=== PATIENT | female | born 1955 | race Hispanic/Latino ===

== ENCOUNTER 2018-02-02 15:20 | Emergency (ER) | payer SELFPAY ==
[2018-02-02] MEDS ORDERED: ASPIRIN 325 MG TABLET ONE (15:30)
[2018-02-02] MEDS ORDERED: LIDOCAINE HCL 2% VISCOUS 15 ML UDCUP ONE (15:45)
[2018-02-02] MEDS ORDERED: MAG HYDROX/AL HYDROX/SIMETH ES 30 ML SUSP UDCUP ONE (15:45)
[2018-02-02 15:46] LABS: INR 0.92 (0.85-1.15); PARTIAL THROMBOPLASTIN TIME 26.4 SEC (26.3-35.5); PROTHROMBIN TIME 9.7 SEC (9.6-11.6)
[2018-02-02 15:50] LABS: POTASSIUM 3.5 mmol/L (3.5-5.1)
[2018-02-02 15:59] LABS: ALBUMIN 3.8 g/dL (3.5-5.0); BILIRUBIN,TOTAL 0.4 mg/dL (0.2-1.0); TOTAL PROTEIN, SERUM 7.4 g/dL (6.0-8.3)
[2018-02-02 16:08] LABS: BASOPHILS % (AUTO) 1.8 % (0.0-5.0); EOSINOPHILS % (AUTO) 0.4 % (0.0-8.0); MEAN CORPUSCULAR HEMOGLOBIN 30.4 pg (27.0-33.0); MEAN CORPUSCULAR HGB CONC 34.4 g/dL (32.0-36.0); MEAN CORPUSCULAR VOLUME 88.4 fL (79-99); NEUTROPHILS % (AUTO) 52.8 % (40.0-77.0); NUCLEATED RED BLOOD CELLS 0.1 % (0.0-0.19); PLATELET COUNT (AUTO) 160 K/uL (130-400); RED BLOOD CELL COUNT(AUTO) 4.98 MIL/uL (4.00-5.50); RED CELL DISTRIBUTION WIDTH 14.1 % (11.0-15.5); WHITE BLOOD COUNT (AUTO) 6.1 K/uL (4.8-10.8)
[2018-02-02] MEDS ORDERED: IOHEXOL 350 MG/ML 100ML INFUS..BTL IV ONE (16:18)
[2018-02-02 17:25] LABS: APPEARANCE,URINE Clear (CLEAR); BILIRUBIN,URINE Negative (NEGATIVE); COLOR,URINE Yellow (YELLOW); GLUCOSE, URINE (UA) Negative (NEGATIVE); KETONES,URINE Negative (NEGATIVE); LEUKOCYTE ESTERASE ,URINE Negative (NEGATIVE); NITRATE,URINE Negative (NEGATIVE); OCCULT BLOOD,URINE Negative (NEGATIVE); PH,URINE 7.5 (5.0-8.0); PROTEIN,URINE Negative (NEGATIVE); UROBILINOGEN,URINE 0.2 mg/dL (0.2-1.0)
== END 2018-02-02 17:53 | disposition home or self-care (01) ==
LOC: EDH 15:20
DX: R07.89 Other chest pain (principal); R10.13 Epigastric pain; Z63.4 Disappearance and death of family member; Z72.0 Tobacco use
CPT/HCPCS: 36415; 71045; 71275; 80053; 81003; 82550; 83690; 83874; 84484; 85025; 85378; 85610; 85730; 93005; 94761; 99284; Q9967

== ENCOUNTER → 2019-05-01 | Outpatient (CLI) | payer OTHER | END | disposition home or self-care (01) | LOC: RAH 11:44 | PROVIDERS: ATTEND Internal Medicine Gastroenterology | DX: R14.0 Abdominal distension (gaseous) (principal); R10.13 Epigastric pain | CPT/HCPCS: 78264; A9541 ==

== ENCOUNTER → 2021-09-19 | Outpatient (CLI) | payer MEDICARE | END | disposition home or self-care (01) | LOC: SHCH 14:16 | PROVIDERS: ATTEND Student in an Organized Health Care Education/Training Program | DX: R00.2 Palpitations (principal); I10 Essential (primary) hypertension; E78.5 Hyperlipidemia, unspecified; M85.80 Other specified disorders of bone density and structure, unspecified site; Z72.0 Tobacco use | CPT/HCPCS: 93306 ==

== ENCOUNTER → 2022-03-23 | Outpatient (CLI) | payer MEDICARE | END | disposition home or self-care (01) | LOC: RAH 09:01 | PROVIDERS: ATTEND Nurse Practitioner | DX: Z12.31 Encounter for screening mammogram for malignant neoplasm of breast (principal) | CPT/HCPCS: 77067 ==

== ENCOUNTER 2022-05-14 05:33 | Day surgery (SDC) | payer MEDICARE ==
[2022-05-12 09:59] LABS: BASOPHILS % (AUTO) 1.7 % (0.0-5.0); EOSINOPHILS % (AUTO) 0.6 % (0.0-8.0); HEMATOCRIT 42.9 % (36-48); LYMPHOCYTES % (AUTO) 36.6 % (21.0-51.0); MEAN CORPUSCULAR HEMOGLOBIN 28.7 pg (27.0-33.0); MEAN CORPUSCULAR HGB CONC 32.4 g/dL (32.0-36.0); MEAN CORPUSCULAR VOLUME 88.6 fL (79-99); MONOCYTES % (AUTO) 6.3 % (3.0-13.0); NEUTROPHILS % (AUTO) 54.6 % (40.0-77.0); PLATELET COUNT (AUTO) 172 K/uL (130-400); RED BLOOD CELL COUNT(AUTO) 4.84 MIL/uL (4.00-5.50); RED CELL DISTRIBUTION WIDTH 13.2 % (11.0-15.5); WHITE BLOOD COUNT (AUTO) 5.3 K/uL (4.8-10.8)
[2022-05-12 10:04] VITALS: BP 121/54
[2022-05-12 10:09] LABS: APPEARANCE,URINE CLEAR (CLEAR); BILIRUBIN,URINE NEGATIVE (NEGATIVE); COLOR,URINE COLORLESS (YELLOW); GLUCOSE, URINE (UA) NEGATIVE (NEGATIVE); KETONES,URINE NEGATIVE (NEGATIVE); LEUKOCYTE ESTERASE ,URINE NEGATIVE Leu/uL (NEGATIVE); NITRATE,URINE NEGATIVE (NEGATIVE); OCCULT BLOOD,URINE NEGATIVE (NEGATIVE); PH,URINE 6.5 (5.0-8.0); PROTEIN,URINE NEGATIVE (NEGATIVE); UROBILINOGEN,URINE 0.2 mg/dL (0.2-1.0)
[2022-05-12 10:09] LABS: CREATININE 0.9 mg/dL (0.5-1.5); POTASSIUM 4.7 mmol/L (3.5-5.1)
[2022-05-12 10:22] LABS: INR 0.94 (0.85-1.15); PROTHROMBIN TIME 10.3 SEC (9.6-11.6)
[2022-05-12 10:24] LABS: PARTIAL THROMBOPLASTIN TIME 28.4 SEC (26.3-35.5)
[2022-05-12 19:53] LABS: B-TYPE NATRIURETIC PEPTIDE 20 pg/mL (0-100)
[2022-05-14] VITALS (13 sets, daily range): BP systolic 133–163; BP diastolic 45–74
[~2022-05-14] VITALS: Ht 160 cm; Wt 65.0 kg
[~2022-05-14 05:33] MED LIST: CYAN250014 PO; FAMO20TA8 PO; FLUT16H NASAL; LISI5TAB21 PO; LORA10TA7 PO; NAPR-1192 PO; PANT40TA54 PO; PARO10TA71 PO; SIME80TA12 PO; SIMV10TA97 PO; VITAD50000 PO
[2022-05-14] MEDS ORDERED: 0.9%NACL 1000ML 1,000 ML IV ONE (06:11)
[2022-05-14] MEDS ORDERED: VERAPAMIL HCL 2.5 MG/ML VIAL ONE (07:22)
[2022-05-14] MEDS ORDERED: NITROGLYCERIN 50MG VIAL ONE (07:22)
[2022-05-14] MEDS ORDERED: IOHEXOL 350 MG/ML 100ML INFUS..BTL IV ONE (07:22)
[2022-05-14] MEDS ORDERED: HEPARIN 10,000 UNIT/10ML (1,000 UNIT/ML) VIAL ONE (07:22)
[2022-05-14] MEDS ORDERED: MIDAZOLAM HCL 1 MG/ML 2ML VIAL ONE ×2 (07:23→08:10)
[2022-05-14] MEDS ORDERED: FENTANYL CITRATE PF 50 MCG/1 ML 2ML VIAL ONE (07:23)
[2022-05-14] MEDS ORDERED: LIDOCAINE HCL 400MG/20ML VIAL ONE (07:23)
[2022-05-14] MEDS ORDERED: DEXTROSE 50%-WATER 50 ML DISP.SYRIN IV PRN (08:30)
[2022-05-14] MEDS ORDERED: GLUCAGON 1MG KIT 1 MG ML IM PRN (08:30)
== END 2022-05-14 11:20 | disposition home or self-care (01) ==
LOC: DAH 05:33
PROVIDERS: ATTEND Student in an Organized Health Care Education/Training Program
DX: R94.39 Abnormal result of other cardiovascular function study (principal); I20.8 Other forms of angina pectoris; I10 Essential (primary) hypertension; F17.210 Nicotine dependence, cigarettes, uncomplicated; E78.5 Hyperlipidemia, unspecified; F41.9 Anxiety disorder, unspecified; Z90.710 Acquired absence of both cervix and uterus; Z83.3 Family history of diabetes mellitus; Z82.49 Family history of ischemic heart disease and other diseases of the circulatory system; Z79.899 Other long term (current) drug therapy; Z79.01 Long term (current) use of anticoagulants
CPT/HCPCS: 80048; 83880; 85025; 85610; 85730; 81003; 36415; 71045; 93005; 93458; C1769 ×3; C1894; J3010; J3490 ×3; J7030; J1644 ×2; J2250 ×2; Q9967; A4215; A4222; A6260; A4221; A4663; A4216; A6206; A4606; Q9965 ×2; A4223 ×3; 99156; 99157

== ENCOUNTER 2022-05-17 00:41 | Emergency (ER) | payer MEDICARE ==
[~2022-05-17] VITALS: Ht 160 cm; Wt 64.9 kg
[~2022-05-17 00:41] MED LIST changes: -NAPR-1192 PO
[2022-05-17] MEDS ORDERED: ONDANSETRON 4MG INJ IVP ONE (01:00)
[2022-05-17 01:17] LABS: BASOPHILS % (AUTO) 0.8 % (0.0-5.0); EOSINOPHILS % (AUTO) 0.4 % (0.0-8.0); HEMATOCRIT 41.2 % (36-48); LYMPHOCYTES % (AUTO) 20.1 % (21.0-51.0); MEAN CORPUSCULAR HEMOGLOBIN 29.2 pg (27.0-33.0); MEAN CORPUSCULAR HGB CONC 33.7 g/dL (32.0-36.0); MEAN CORPUSCULAR VOLUME 86.6 fL (79-99); MONOCYTES % (AUTO) 6.6 % (3.0-13.0); NEUTROPHILS % (AUTO) 71.7 % (40.0-77.0); PLATELET COUNT (AUTO) 145 K/uL (130-400); RED BLOOD CELL COUNT(AUTO) 4.76 MIL/uL (4.00-5.50); RED CELL DISTRIBUTION WIDTH 13.2 % (11.0-15.5); WHITE BLOOD COUNT (AUTO) 10.2 K/uL (4.8-10.8)
[2022-05-17 01:25] LABS: CREATININE 0.9 mg/dL (0.5-1.5); POTASSIUM 3.7 mmol/L (3.5-5.1)
[2022-05-17 01:27] LABS: APPEARANCE,URINE CLOUDY (CLEAR); BILIRUBIN,URINE NEGATIVE (NEGATIVE); COLOR,URINE LIGHT-YELLOW (YELLOW); GLUCOSE, URINE (UA) NEGATIVE (NEGATIVE); KETONES,URINE NEGATIVE (NEGATIVE); LEUKOCYTE ESTERASE ,URINE 500 Leu/uL (NEGATIVE); NITRATE,URINE NEGATIVE (NEGATIVE); OCCULT BLOOD,URINE LARGE (NEGATIVE); PROTEIN,URINE 30 mg/dL (NEGATIVE); UROBILINOGEN,URINE 0.2 mg/dL (0.2-1.0)
[2022-05-17 01:29] LABS: ALBUMIN 3.7 g/dL (3.5-5.0); TOTAL PROTEIN, SERUM 7.1 g/dL (6.0-8.3)
[2022-05-17 01:36] LABS: BACTERIA,URINE FEW /HPF (None Seen); SQUAMOUS EPITHELIAL CELL,UR RARE /HPF (0-2); WBC,URINE TNTC /HPF (0-1)
[2022-05-17] MEDS ORDERED: CEFTRIAXONE 1G VIAL ONE (01:57)
[2022-05-17] MEDS ORDERED: CEFTRIAXONE 1G VIAL IV ONE (02:00)
[2022-05-17] MEDS ORDERED: CEPH500B PO (05:24)
[2022-05-17] MEDS ORDERED: PHENAZOPYRIDINE HCL 200 MG TABLET PO STA (05:25)
[2022-05-17] MEDS ORDERED: PHEN-847 PO (05:29)
[2022-05-17] MEDS ORDERED: PHENAZOPYRIDINE HCL 200 MG TABLET ONE (05:47)
[2022-05-17 05:50] VITALS: BP 120/53
== END 2022-05-17 06:03 | disposition home or self-care (01) ==
LOC: EDH 00:41
DX: N39.0 Urinary tract infection, site not specified (principal); E78.00 Pure hypercholesterolemia, unspecified; I10 Essential (primary) hypertension; F17.200 Nicotine dependence, unspecified, uncomplicated; Z79.1 Long term (current) use of non-steroidal anti-inflammatories (NSAID); Z79.899 Other long term (current) drug therapy
CPT/HCPCS: 99285; 96374; 96375; 80053; 83690; 85025; 87088; 81001; 36415; J0696

== ENCOUNTER 2022-07-31 12:55 | Emergency (ER) | payer MEDICARE ==
[~2022-07-31] VITALS: Ht 160 cm; Wt 63.5 kg
[~2022-07-31 12:55] MED LIST changes: +CEPH500B PO; +PHEN-847 PO
[2022-07-31 13:22] LABS: BASOPHILS % (AUTO) 0.2 % (0.0-5.0); EOSINOPHILS % (AUTO) 0.3 % (0.0-8.0); HEMATOCRIT 47.2 % (36-48); LYMPHOCYTES % (AUTO) 4.1 % (21.0-51.0); MEAN CORPUSCULAR HEMOGLOBIN 28.5 pg (27.0-33.0); MEAN CORPUSCULAR HGB CONC 33.3 g/dL (32.0-36.0); MEAN CORPUSCULAR VOLUME 85.8 fL (79-99); MONOCYTES % (AUTO) 2.1 % (3.0-13.0); NEUTROPHILS % (AUTO) 92.9 % (40.0-77.0); PLATELET COUNT (AUTO) 179 K/uL (130-400); RED CELL DISTRIBUTION WIDTH 13.4 % (11.0-15.5); WHITE BLOOD COUNT (AUTO) 10.4 K/uL (4.8-10.8)
[2022-07-31 13:40] LABS: POTASSIUM 3.9 mmol/L (3.5-5.1)
[2022-07-31 13:46] LABS: TOTAL PROTEIN, SERUM 7.7 g/dL (6.0-8.3)
[2022-07-31] MEDS ORDERED: ONDANSETRON 4MG INJ IVP ONE (14:00)
[2022-07-31] MEDS ORDERED: FAMOTIDINE 20MG VIAL IV ONE (14:00)
[2022-07-31] MEDS ORDERED: MORPHINE 2 MG SYG IVP ONE (14:00)
[2022-07-31] MEDS ORDERED: 0.9% NACL 500ML IV.SOLN 500 ML IV ONE (14:30)
[2022-07-31 18:15] VITALS: BP 135/75
[2022-07-31] MEDS ORDERED: ONDA4TAB10 PO (18:29)
[2022-07-31] MEDS ORDERED: FAMO-136 PO (18:29)
== END 2022-07-31 19:14 | disposition home or self-care (01) ==
LOC: EDH 12:55
DX: K20.90 Esophagitis, unspecified without bleeding (principal); R19.7 Diarrhea, unspecified; K21.9 Gastro-esophageal reflux disease without esophagitis; E86.0 Dehydration; E78.00 Pure hypercholesterolemia, unspecified; I10 Essential (primary) hypertension; F17.200 Nicotine dependence, unspecified, uncomplicated; Z79.899 Other long term (current) drug therapy
CPT/HCPCS: 99285; 96374; 71045; 96375; 82550; 83735; 84484 ×2; 80053; 83690; 85025; 36415; 93005; J7040; J3490; J2270; J2405

== ENCOUNTER 2023-05-29 00:57 | Emergency (ER) | payer MEDICARE ==
[~2023-05-29] VITALS: Ht 160 cm; Wt 67.6 kg
[~2023-05-29 00:57] MED LIST changes: +FAMO-136 PO; +ONDA4TAB10 PO
[2023-05-29 01:19] LABS: BASOPHILS # (AUTO) 0.07 K/uL (0.00-0.20); EOSINOPHILS % (AUTO) 1.4 % (0.0-8.0); HEMATOCRIT 43.1 % (36-48); LYMPHOCYTES # (AUTO) 3.3 K/uL (1.0-4.8); LYMPHOCYTES % (AUTO) 47.2 % (21.0-51.0); MEAN CORPUSCULAR HEMOGLOBIN 28.7 pg (27.0-33.0); MEAN CORPUSCULAR HGB CONC 33.2 g/dL (32.0-36.0); MEAN CORPUSCULAR VOLUME 86.5 fL (79-99); MONOCYTES # (AUTO) 0.5 K/uL (0.1-1.0); MONOCYTES % (AUTO) 6.5 % (3.0-13.0); NEUTROPHILS % (AUTO) 43.9 % (40.0-77.0); PLATELET COUNT (AUTO) 160 K/uL (130-400); RED BLOOD CELL COUNT(AUTO) 4.98 MIL/uL (4.00-5.50); RED CELL DISTRIBUTION WIDTH 13.8 % (11.0-15.5); WHITE BLOOD COUNT (AUTO) 6.9 K/uL (4.8-10.8)
[2023-05-29] MEDS: MORPHINE 4 MG SYG IVP ONE (01:21)
[2023-05-29] MEDS: 0.9%NACL 1000ML 1,000 ML IV ONE (01:21)
[2023-05-29 01:31] LABS: APPEARANCE,URINE CLEAR (CLEAR); BILIRUBIN,URINE NEGATIVE (NEGATIVE); COLOR,URINE COLORLESS (YELLOW); GLUCOSE, URINE (UA) NEGATIVE (NEGATIVE); KETONES,URINE NEGATIVE (NEGATIVE); LEUKOCYTE ESTERASE ,URINE NEGATIVE Leu/uL (NEGATIVE); NITRATE,URINE NEGATIVE (NEGATIVE); OCCULT BLOOD,URINE NEGATIVE (NEGATIVE); PH,URINE 5.5 (5.0-8.0); PROTEIN,URINE NEGATIVE (NEGATIVE); UROBILINOGEN,URINE 0.2 mg/dL (0.2-1.0)
[2023-05-29 01:32] LABS: ADD UA MICROSCOPIC NO
[2023-05-29 01:35] LABS: POTASSIUM 3.8 mmol/L (3.5-5.1)
[2023-05-29 01:40] LABS: ALBUMIN 3.6 g/dL (3.5-5.0); BILIRUBIN,TOTAL 0.2 mg/dL (0.2-1.0); TOTAL PROTEIN, SERUM 6.7 g/dL (6.0-8.3)
[2023-05-29] MEDS: METOCLOPRAMIDE 10 MG/2 ML VIAL IVP ONE (02:39)
[2023-05-29] MEDS: DIAZEPAM 5 MG/ML 2 ML SYG IVP ONE (02:39)
[2023-05-29] MEDS: KETOROLAC 15MG/ML VIAL (15MG/ML) IV ONE (02:39)
[2023-05-29 03:22] VITALS: BP 123/69; PULSE 69; RESP 16; O2SAT 98
[2023-05-29] MEDS ORDERED: MELO-106 PO (03:25)
[2023-05-29] MEDS ORDERED: CYCL10TA16 PO (03:25)
== END 2023-05-29 03:59 | disposition home or self-care (01) ==
LOC: EDH 00:57
DX: M54.31 Sciatica, right side (principal); E78.00 Pure hypercholesterolemia, unspecified; I10 Essential (primary) hypertension; F17.200 Nicotine dependence, unspecified, uncomplicated; Z79.899 Other long term (current) drug therapy; Z90.710 Acquired absence of both cervix and uterus
CPT/HCPCS: 99285; 74176; 96374; 96375; 96361; 80053; 83690; 85025; 81003; 36415; J3360; J2270; J2765; J1885

== ENCOUNTER → 2023-07-06 | Outpatient (CLI) | payer MEDICARE ==
[~2023-07-06] MED LIST changes: +CYCL10TA16 PO; +MELO-106 PO
== END | disposition home or self-care (01) ==
LOC: RAH 11:09
PROVIDERS: ATTEND Nurse Practitioner
DX: M47.26 Other spondylosis with radiculopathy, lumbar region (principal); M48.07 Spinal stenosis, lumbosacral region; M51.16 Intervertebral disc disorders with radiculopathy, lumbar region
CPT/HCPCS: 72148

== ENCOUNTER 2024-11-07 04:44 | Observation (INO) | payer MEDICARE, OTHER ==
[~2024-11-07] VITALS: Ht 160 cm; Wt 75.6 kg
[2024-11-07] VITALS (21 sets, daily range): BP systolic 127–174; BP diastolic 58–98; PULSE 72–91; RESP 15–20; TEMP 97.3–98.4; O2SAT 96–97
[~2024-11-07 04:44] MED LIST changes: +ONDA-243 PO; -ONDA4TAB10 PO
--- NOTE | 2024-11-07 05:12 | EKG ---
[facility] Test Date: 2024-11-07 Test Time: 05:08:44 Pat Name: TRESA ALVARADO Department: [facility] Room: 314 Gender: F Marketing Officer: [id number] : 1955 Requested By: CARL STRAUSS Order Number: [id number] Reading MD: Mick Morrell Measurements Intervals [place] Rate: 69 P: 32 [place]: 158 QRS: 0 QRSD: 75 T: 21 QT: 399 QTc: 428 Interpretive Statements Sinus rhythm Compared to ECG 07/31/2022 13:04:40 No significant changes Electronically Signed On 11-07-2024 17:24:51 CDT by Mick Morrell Please click the below link to view image of tracing.
--- NOTE | 2024-11-07 05:15 | ERN ---
General Chief Complaint: Abdominal Pain Stated Complaint: C/O ABD PAIN RADIATING TO BACK W/NAUSEA ONSET MIDN Time Seen by MD: 04:54 Source: patient History of Present Illness Initial Comments Patient is a 69-year-old female coming in complaining of abdominal disc comfort nauseousness. Per patient this discomfort woke up the morning. She has a history of the hysterectomy Allergies: Coded Allergies: No Known Allergies (Unverified Allergy, Unknown, 10/31/18) Home Meds Active Scripts Cyclobenzaprine HCl (Flexeril) 10 Mg Tab, 10 MG PO TIDP PRN for MUSCLE SPASMS, #30 TAB 2 Refills Prov:DEANA MENDOSA Sr., MD 05/29/23 Meloxicam (Meloxicam) 7.5 Mg Tablet, 7.5 MG PO DAILY, #30 TAB 2 Refills Prov:DEANA MENDOSA Sr., MD 05/29/23 Famotidine (Pepcid) 20 Mg Tablet, 20 MG PO DAILY, #15 TAB 0 Refills Prov:LAURA MCMILLAN MD 07/31/22 Ondansetron (Ondansetron Odt) 4 Mg Tab.rapdis, 4 MG PO TID PRN for NAUSEA, #30 TAB 0 Refills Prov:LAURA MCMILLAN MD 07/31/22 Phenazopyridine HCl (Pyridium) 200 Mg Tab, 200 MG PO TIDPC for 3 Days, #9 TAB TAKE WITH FOOD TO PREVENT STOMACH UPSET. Prov:RAJ HWANG MD 05/17/22 Cephalexin Monohydrate (Keflex) 500 Mg Cap, 500 MG PO QID for 7 Days, #28 CAP Prov:RAJ HWANG MD 05/17/22 Reported Medications Cyanocobalamin (Vitamin B-12) (Vitamin B12) 2,500 Mcg Tab.chew, 2000 UNITS PO DAILY, TAB.CHEW 05/12/22 Cholecalciferol (Vitamin D3) 50,000 Units Cap, 2000 UNITS PO BID, CAP 05/12/22 Paroxetine HCl (Paroxetine HCl) 10 Mg Tablet, 10 MG PO DAILY, TAB 05/12/22 Simethicone (Simethicone) 80 Mg Tab.chew, 80 MG PO BID, TAB.CHEW 05/12/22 Fluticasone Propionate (Flonase Nasal Chinchilla) 50 Mcg/[place] Chinchilla, 50 MCG NASAL HS, SPRAY 05/12/22 Loratadine (Loratadine) 10 Mg Tablet, 10 MG PO HS, TAB 05/12/22 Famotidine (Famotidine) 20 Mg Tablet, 20 MG PO HS, TAB 05/12/22 Simvastatin (Simvastatin) 10 Mg Tablet, 10 MG PO HS, TAB 05/12/22 Pantoprazole Sodium (Pantoprazole Sodium) 40 Mg Tablet.dr, 40 MG PO DAILY, TAB 05/12/22 Lisinopril (Lisinopril) 5 Mg Tablet, 5 MG PO DAILY, TAB 05/12/22 Past Medical History Past Medical History: Hypertension, Other Medical History Other: HX OF GASTRITIS Past Surgical History: None Surgical History Other: ANGIOGRAM Social History Social History: Smokers ROS Dictation CONSTITUTIONAL: No chills, no fever, no weakness, no diaphoresis, no malaise. HEAD/FACE: No signs of trauma. EENT: No eye pain, no blurred vision, no tearing, no double vision, no ear pain, no ear discharge, no nose pain, no nasal congestion, no throat pain, no throat swelling, no mouth pain. RESPIRATORY: No cough, no orthopnea, no SOB, no stridor, no wheezing. CARDIOVASCULAR: No chest pain, no edema, no palpitations, no syncope. GASTROINTESTINAL/ABDOMINAL: abdominal pain, no constipation, no diarrhea, no nausea, no vomiting. GENITOURINARY: No abnormal discharge, no dysuria, no frequent urination, no hematuria. No complaints of pain in the genitals. MUSCULOSKELETAL: No back pain, no gout, no joint pain, no joint swelling, no muscle pain, no muscle stiffness, no neck pain. INTEGUMENTARY: No change in color, no change in hair/nails, no dryness, no lesion, no lumps, no rash. NEUROLOGICAL/PSYCH: No anxiety, not depressed, no emotional problem, no headache, no numbness, no pre-existing deficit, no history of seizures, no tremors, no weakness. HEMATOLOGIC/LYMPHATIC: Not anemic, no history of blood clots, no apparent bleeding, no bruising, glands not swollen. All Systems Negative, Except as Noted. Physical Exam Physical Exam Dictation VITAL SIGNS: Reviewed. GENERAL APPEARANCE: Alert, oriented x3, no acute distress, obese. HEAD AND FACE: Non-traumatic. EYES: PERRL, pink conjunctivas, eyelid no trauma, anterior chamber clear. EARS: Pinnas intact and no signs of trauma or erythema. Ear canals clear and no discharge. TMs no erythema. NOSE: No discharge, no bleeding. OROPHARYNX: Mouth normal, teeth no caries, tongue pink. Pharynx clear, no erythema. Tonsils no exudates, no abscesses noted. Mucous membrane moist. NECK: Supple, non-tender, no thyromegaly, no masses, no JVD, no bruits. BREAST: Deferred. CHEST: No tenderness, no crepitus, no paradoxical movement, no retractions. LUNGS: Clear, well-ventilated, symmetric, no rales, no wheezing, no rhonchi, no stridor, good breath sounds bilaterally. HEART: Regular rate, regular rhythm, no murmur, no gallops. VASCULAR: No peripheral edema. ABDOMEN: Soft, positive bowel sounds, nondistended, no guarding, epigastric tender, no rebound, no masses no hepatomegaly, no splenomegaly, no Carolina's sign, no hernias. Patient has right lower quadrant tenderness and also Rovnig's sign. RECTAL: Deferred. GENITAL: Deferred. NEUROLOGICAL: Normal speech, gross motor function intact, gross sensory function intact. MUSCULOSKELETAL: Neck nontender, full range of motion, back nontender, full range of motion. EXTREMITIES: Nontender, full range of motion. SKIN: Color pink, dry, no turgor, no rash, no lacerations, no abrasions, no contusions. LYMPHATICS: Deferred. Results Laboratory and Microbiology Lab and Micro Result Laboratory Tests Test 11/07/24 05:08 11/07/24 05:24 White Blood Count 13.4 K/uL (4.8-10.8) H Red Blood Count 4.99 MIL/uL (4.00-5.50) Hemoglobin 14.6 g/dL (12.0-16.0) Hematocrit 43.3 % (36-48) Mean Corpuscular Volume 86.8 fL (79-99) Mean Corpuscular Hemoglobin 29.3 pg (27.0-33.0) Mean Corpuscular Hemoglobin Concent 33.7 g/dL (32.0-36.0) Red Cell Distribution Width 13.7 % (11.0-15.5) Platelet Count 149 K/uL (130-400) Mean Platelet Volume 10.8 fL (7.5-10.5) H Immature Granulocyte % (Auto) 0.6 % (0-1) Neutrophils (%) (Auto) 62.5 % (40.0-77.0) Lymphocytes (%) (Auto) 28.4 % (21.0-51.0) Monocytes (%) (Auto) 7.1 % (3.0-13.0) Eosinophils (%) (Auto) 0.4 % (0.0-8.0) Basophils (%) (Auto) 1.0 % (0.0-5.0) Neutrophils # (Auto) 8.4 K/uL (1.8-7.7) H Lymphocytes # (Auto) 3.8 K/uL (1.0-4.8) Monocytes # (Auto) 1.0 K/uL (0.1-1.0) Eosinophils # (Auto) 0.05 K/uL (0.00-0.70) Basophils # (Auto) 0.13 K/uL (0.00-0.20) Absolute Immature Granulocyte (auto 0.08 K/uL (0-1) Nucleated Red Blood Cells 0.0 % (0.0-0.19) Sodium Level 136 mmol/L (136-145) Potassium Level 4.5 mmol/L (3.5-5.1) Chloride Level 102 mmol/L (101-111) Carbon Dioxide Level 23 mmol/L (21-32) Blood Urea Nitrogen 19 mg/dL (7-18) H Creatinine 1.1 mg/dL (0.5-1.0) H Glomerular Filtration Rate Calc 54 mL/min (>90) Random Glucose 115 mg/dL (70-105) H Total Calcium 8.9 mg/dL (8.5-10.1) Total Bilirubin 0.5 mg/dL (0.2-1.0) Aspartate Amino Transf (AST/SGOT) 32 U/L (10-37) Alanine Aminotransferase (ALT/SGPT) 35 U/L (12-78) Alkaline Phosphatase 76 U/L (50-136) Total Creatine Kinase 241 U/L (21-232) #H Troponin I High Sensitivity 8 ng/L (4-50) Total Protein 7.1 g/dL (6.0-8.3) Albumin 3.6 g/dL (3.5-5.0) Lipase 76 U/L (16-77) Urine Color LIGHT-YELLOW (YELLOW) Urine Appearance CLEAR (CLEAR) Urine pH 6.0 (5.0-8.0) Urine Specific [place] 1.018 (1.001-1.031) Urine Protein NEGATIVE mg/dL (NEGATIVE) Urine Glucose (UA) NEGATIVE mg/dL (NEGATIVE) Urine Ketones NEGATIVE mg/dL (NEGATIVE) Urine Occult Blood NEGATIVE (NEGATIVE) Urine Nitrate NEGATIVE (NEGATIVE) Urine Bilirubin NEGATIVE mg/dL (NEGATIVE) Urine Urobilinogen 0.2 mg/dL (0.2-1.0) Urine Leukocyte Esterase NEGATIVE Chantelle/uL Labs Reviewed?: Yes MDM MDM: Differential diagnosis: Rationale: Tests considered and ordered secondary to shared decision making include: Previous outside records reviewed: Old ER visits. Risk of complication and/or morbidity or mortality of patient management: None Medications-Per medication reconciliation Need for hospitalization: Patient does not meet criteria for hospitalization. Need for emergency major/minor surgery: No There are no social concerns with this patient. Prescription drug management Prescriptions will include symptomatic care Patient's prior external medical records from other ER visits were reviewed by me as indicated. Prior testing and results from previous visits were reviewed. Prior tests were taken into account with medical decision making and resource utilization, independent historian/historians were used to obtain complete medical history. I independently interpreted the test that were performed, results were reviewed by me and considered findings on radiology if ordered. Medical management and examination interpretation discussions were had by me with other qualified healthcare professionals as indicated for the patient's care. CT scan of the abdomen is positive for stranding around the appendix appendicolith. Dr. Cm called he is agreed to admit her to the hospital. Hospitalist called as well. ED Course Orders Procedure Category Date Status Time Cbc With Differential LAB 11/07/24 Complete 04:56 Comprehensive LAB 11/07/24 Complete Metabolic Panel 04:56 Troponin I High LAB 11/07/24 Complete Sensitivity 04:56 Urinalysis Profile LAB 11/07/24 Complete 04:56 12 Lead Ekg Tracing- EKG 11/07/24 Complete Technical 04:56 Pantoprazole 40mg Inj PHA 11/07/24 Complete (Protonix 40mg Inj 05:00 Creatine Kinase, Total LAB 11/07/24 Complete 04:56 Lipase LAB 11/07/24 Complete 04:56 Ondansetron 4mg Inj PHA 11/07/24 Complete (Zofran 4mg Inj) 05:30 Ondansetron 4mg Inj PHA 11/07/24 Complete (Zofran 4mg Inj) 05:04 Morphine 2mg Syg PHA 11/07/24 Complete (Morphine 2mg Syg) 05:30 Ct Abdomen/Pelvis W/O CT 11/07/24 Resulted Contrast 05:34 Zosyn 3.375gm+Ns 50ml PHA 11/07/24 In Process (Zosyn 3.375gm+Ns 07:30 Current Medications Medications (Trade) Dose Ordered Sig/Amish Route PRN Reason Start Time Stop Time Status Last Admin Dose Admin Morphine Sulfate (morPHINE 2MG SYG) 2 mg ONCE ONCE IVP 11/07/24 05:30 11/07/24 05:31 DC 11/07/24 05:33 Ondansetron HCl (zoFRAN 4MG INJ) 4 mg ONCE ONCE IVP 11/07/24 05:30 11/07/24 05:31 DC 11/07/24 05:07 Ondansetron HCl (zoFRAN 4MG INJ) 4 mg STK-MED ONCE .ROUTE 11/07/24 05:04 11/07/24 05:04 DC Pantoprazole Sodium (PROTonix 40MG INJ) 40 mg ONCE ONCE IVP 11/07/24 05:00 11/07/24 05:02 DC 11/07/24 05:07 Piperacillin Sod/ Tazobactam Sod (Zosyn 3.375gm+NS 50ml) 3.375 gm ONCE ONCE IV 11/07/24 07:30 11/07/24 07:31 Vital Signs Date Time Temp Pulse Resp B/P (MAP) Pulse Ox O2 Delivery O2 Flow Rate FiO2 11/07/24 06:20 66 17 164/71 98 Room Air* 0 11/07/24 04:57 97.9 66 17 168/67 98 Room Air* 0 11/07/24 04:45 96.3 66 20 164/62 97 Room Air DX & DISP Disposition: Inpatient Departure Impression: Primary Impression: Acute appendicitis Condition: Stable Referrals: MATILDA MCGARRY (PCP) CARL STRAUSS MD Nov 07, 2024 05:15 LEONILA MCPHERSON MD Nov 07, 2024 07:25
[2024-11-07 05:26] LABS: IMMATURE GRANULOCYTE ABSOLUTE 0.08 K/uL (0-1); NUCLEATED RED BLOOD CELLS 0.0 % (0.0-0.19); PLATELET COUNT (AUTO) 149 K/uL (130-400); RED BLOOD CELL COUNT(AUTO) 4.99 MIL/uL (4.00-5.50); RED CELL DISTRIBUTION WIDTH 13.7 % (11.0-15.5); WHITE BLOOD COUNT (AUTO) 13.4 K/uL (4.8-10.8)
[2024-11-07 05:35] LABS: APPEARANCE,URINE CLEAR (CLEAR); GLUCOSE, URINE (UA) NEGATIVE (NEGATIVE); LEUKOCYTE ESTERASE ,URINE NEGATIVE Leu/uL (NEGATIVE); NITRATE,URINE NEGATIVE (NEGATIVE); OCCULT BLOOD,URINE NEGATIVE (NEGATIVE)
[2024-11-07 05:36] LABS: ADD UA MICROSCOPIC NO
[2024-11-07 05:36] LABS: ASPARTATE AMINOTRANSFERASE 32.0 U/L (10-37); CREATINE KINASE, TOTAL 241.0 U/L (21-232); CREATININE 1.1 mg/dL (0.5-1.0); GLOMERULAR FILTR. RATE CALC 54.0 mL/min (>90); GLUCOSE,RANDOM 115.0 mg/dL (70-105); SODIUM SERUM 136.0 mmol/L (136-145); TOTAL PROTEIN, SERUM 7.1 g/dL (6.0-8.3); UREA NITROGEN, BLOOD 19.0 mg/dL (7-18)
--- NOTE | 2024-11-07 06:37 | HMCIMG ---
EXAM: CT Abdomen and Pelvis without V contrast CLINICAL HISTORY: Abdominal pain. TECHNIQUE: Thin collimated axial CT images of the abdomen and pelvis were obtained, with sagittal and coronal reformatted images also submitted. A CT scan is done according to ALARA (As Low As Reasonably Achievable). CONTRAST: None COMPARISON: Prior CT abdomen and pelvis dated 29 May 2023. FINDINGS: Unremarkable visualized lung parenchyma.. Atherosclerotic calcification of the aortic root. Mild fatty infiltration of the liver. No focal lesion. Scattered calcified granulomas in the spleen, approximately 2-3 mm in size. No focal abnormality within the liver, gallbladder, pancreas, adrenals, or kidneys. A 6 mm appendicolith at the orifice of the appendix (axial series 2, image 70). Mildly dilated appendix measuring up to 11 mm with mild wall thickening and periappendiceal fat stranding consistent with acute appendicitis. Tiny appendicolith in the tip of the appendix (axial series 2, image 74). Scattered colonic diverticulosis without evidence of diverticulitis. No inflammatory bowel wall thickening. Mild hiatus hernia. Small bowel loops appear unremarkable. No features of bowel obstruction or ileus. There is no abnormality within the urinary bladder. Post-hysterectomy status. No adnexal mass. Limited in evaluation due to a lack of intravenous contrast. Diffuse atherosclerotic calcification of the abdominal aorta, infrarenal aorta, and bilateral common iliac arteries. No evidence of aneurysmal dilatation. No lymphadenopathy. No free fluid. There is no acute osseous abnormality. Mild osteopenia. Levoscoliosis of the lumbar spine with multilevel degenerative facet arthropathy. Moderate spinal canal stenosis at the L4-L5 level. IMPRESSIONS: A 6 mm appendicolith at the orifice of the appendix. Mildly dilated appendix measuring up to 11 mm with mild wall thickening and periappendiceal fat stranding consistent with acute appendicitis. Tiny appendicolith in the tip of the appendix. Scattered colonic diverticulosis without evidence of diverticulitis. No inflammatory bowel wall thickening. Mild hiatus hernia. Mild fatty infiltration of the liver. No obvious focal lesion. No evidence of renal or ureteric calculus or hydronephrosis. Compared to the prior study, there is an interval development of changes in acute appendicitis. The remainder of the findings remain unchanged. /Theresa
--- NOTE | 2024-11-07 07:05 | NUR ---
REPORT GIVEN TO SE AYALA AT THIS TIME
[2024-11-07] MEDS ORDERED: MAGNESIUM 2GM PREMIX 50ML 50 ML IV PRN (07:30)
[2024-11-07] MEDS ORDERED: PoTASSium chloRIDE 20MEQ ER 20 MEQ ERTAB PO PRN (07:30)
[2024-11-07] MEDS ORDERED: PoTASSium chl 10% ELIXIR 20MEQ 20 MEQ/15 ML UDCUP PO PRN (07:30)
--- NOTE | 2024-11-07 07:35 | HP ---
[facility] PH[facility] Date of Service: Nov 07, 2024 Time of Service: 07:35 HISTORY OF PRESENT ILLNESS: [ ] Admission date 11/07/2024 Chief complaint right lower quad pain This is a 69-year-old female presents in ER with chief complaints of abdominal pain. Onset started overnight. We will give this morning with severe pain and decided to come to ED for further evaluation location right lower quad. Case 10/10 on pain scale. Severity severe aggravating factors movement alleviating factors none. Associated symptoms nausea and vomiting. ER workup was consistent with acute appendicitis. Past medical history hypertension, hyperlipidemia and active smoker. Reports no heart disease. Patient is seen on the floor discussed the plan of care with patient and family. Surgeon was consulted pending to evaluate patient. Patient remains NPO possible appendectomy today versus tomorrow. REVIEW OF SYSTEMS A 12 point ROS obtained all relevant positive documented otherwise ROS negative PAST MEDICAL HISTORY: [ ] refer to HPI PAST SURGICAL HISTORY: [ ]none PAST SOCIAL HISTORY: [ ] Smoker smokes one pack day, denies drinking alcohol use. FAMILY HISTORY: [ ] Noncontributory Coded Allergies: No Known Allergies (Unverified Allergy, Unknown, 10/31/18) PHYSICAL EXAM GENERAL APPEARANCE: The patient is awake, alert, and oriented, in no acute cardiopulmonary distress. NEUROLOGICAL: Cranial nerves II-XII grossly intact. Motor is 5/5 in bilateral upper and lower extremities proximal to distal. No sensory deficits. HEENT: Face is symmetric. Pupils are equal and reactive. Extraocular movements are intact. NECK: Supple. No JVD. No thyromegaly. No submental, submandibular, pre- /postauricular, occipital or supraclavicular lymphadenopathy. CHEST: Normal chest expansion. No Telemetry. LUNGS: Absence of any rales, rhonchi or any wheezing. CARDIOVASCULAR: Regular. S1 and S2 normal. No appreciable rubs, murmurs or gallops. ABDOMEN: Soft, nontender, and nondistended. There is no rebound, voluntary guarding, or rigidity. : Deferred. No [place]. EXTREMITIES: Non-edematous and not cyanotic. No clubbing. Good capillary refill. SKIN: No skin breakdown. Vital Sign (Last 24 Hours) 11/07/24 11/07/24 04:57 06:20 Temp 97.9 Pulse 66 Resp 17 B/P (MAP) 164/71 Pulse Ox 98 O2 Delivery Room Air* O2 Flow Rate 0 FiO2 21 LABS: Laboratory: Test 11/07/24 05:24 11/07/24 05:08 Range/Units Urine Color LIGHT-YELLOW YELLOW Urine Appearance CLEAR CLEAR Urine pH 6.0 5.0-8.0 Urine Specific [place] 1.018 1.001-1.031 Urine Protein NEGATIVE NEGATIVE mg/dL Urine Glucose (UA) NEGATIVE NEGATIVE mg/dL Urine Ketones NEGATIVE NEGATIVE mg/dL Urine Occult Blood NEGATIVE NEGATIVE Urine Nitrate NEGATIVE NEGATIVE Urine Bilirubin NEGATIVE NEGATIVE mg/dL Urine Urobilinogen 0.2 0.2-1.0 mg/dL Urine Leukocyte Esterase NEGATIVE NEGATIVE Chantelle/uL White Blood Count 13.4 H 4.8-10.8 K/uL Red Blood Count 4.99 4.00-5.50 MIL/uL Hemoglobin 14.6 12.0-16.0 g/dL Hematocrit 43.3 36-48 % Mean Corpuscular Volume 86.8 79-99 fL Mean Corpuscular Hemoglobin 29.3 27.0-33.0 pg Mean Corpuscular Hemoglobin Concent 33.7 32.0-36.0 g/dL Red Cell Distribution Width 13.7 11.0-15.5 % Platelet Count 149 130-400 K/uL Mean Platelet Volume 10.8 H 7.5-10.5 fL Immature Granulocyte % (Auto) 0.6 0-1 % Neutrophils (%) (Auto) 62.5 40.0-77.0 % Lymphocytes (%) (Auto) 28.4 21.0-51.0 % Monocytes (%) (Auto) 7.1 3.0-13.0 % Eosinophils (%) (Auto) 0.4 0.0-8.0 % Basophils (%) (Auto) 1.0 0.0-5.0 % Neutrophils # (Auto) 8.4 H 1.8-7.7 K/uL Lymphocytes # (Auto) 3.8 1.0-4.8 K/uL Monocytes # (Auto) 1.0 0.1-1.0 K/uL Eosinophils # (Auto) 0.05 0.00-0.70 K/uL Basophils # (Auto) 0.13 0.00-0.20 K/uL Absolute Immature Granulocyte (auto 0.08 0-1 K/uL Nucleated Red Blood Cells 0.0 0.0-0.19 % Sodium Level 136 136-145 mmol/L Potassium Level 4.5 3.5-5.1 mmol/L Chloride Level 102 101-111 mmol/L Carbon Dioxide Level 23 21-32 mmol/L Blood Urea Nitrogen 19 H 7-18 mg/dL Creatinine 1.1 H 0.5-1.0 mg/dL Glomerular Filtration Rate Calc 54 >90 mL/min Random Glucose 115 H 70-105 mg/dL Total Calcium 8.9 8.5-10.1 mg/dL Total Bilirubin 0.5 0.2-1.0 mg/dL Aspartate Amino Transf (AST/SGOT) 32 10-37 U/L Alanine Aminotransferase (ALT/SGPT) 35 12-78 U/L Alkaline Phosphatase 76 50-136 U/L Total Creatine Kinase 241 #H 21-232 U/L Troponin I High Sensitivity 8 4-50 ng/L Total Protein 7.1 6.0-8.3 g/dL Albumin 3.6 3.5-5.0 g/dL Lipase 76 16-77 U/L Current Medications Medications (Trade) Dose Ordered Sig/Amish Route PRN Reason Start Time Stop Time Status Last Admin Dose Admin Lactated Ringer's (Lactated Ringers 1000ml) 1,000 ml BOLUS STAT IV 11/07/24 07:27 11/07/24 07:30 DC DIAGNOSTICS / RADIOLOGY: [ ] ASSESSMENT: acute appendicitis POA Active smoker POA Suspecting TEJAS obesity BMI: 28.9 Allergies no known allergies PLAN: [ ] Admit: medical surgical floor condition:guarded Status:Full code IVF:LR at 75 ml/hr diet: NPO Consultants General surgeon Antibiotics:Zosyn 3.375gm IV q8 hrs Procedure: possible appendectomy today versus tomorrow Labs cbc, cmp, mag+ Replace electrolytes as needed as per protocol to keep potassium above 4.0 magnesium 2.0. smoking counseling provided: Nicotine patch daily: fall precaution Home medications pending to be reviewed by RN nurse. PRN: MEDICATIONS Tylenol 650 mg po every 4 hrs for fever zofran 4 mg IV every 6 hrs for n/v Hydralazine 5 mg IV every 4 hrs systolic pressure > 160 Duoneb tx PRN oxygen supplemental as needed bowel regiment: lactulose 20 gm PO BID PRN constipation Pain management: Morphine 2 mg IV every 4 hours, Tylenol No. 3 as directed Supportive measures: DVT ppx, GI ppx all questions answered time spent: > 35 min Supervising MD: Dr. Siobhan Silva c/d This document was generated in part using voice recognition software, occasional wrong word or sound alike substitutions may have occurred due to the inherent limitations of voice recognition software. Read the chart carefully and recog nize using context, where the substitutions have occurred. Although every effort was made to edit the content, harnessmaker and typing errors may occur [employer]ING 1. Which of the following were discussed? Hospice Care - Yes / No Therapeutic options - Yes / No Advance Directives - Yes / No Other discussions - 2. Discussed with who? 3. Voluntary nature of this service was explained to the patient? Yes / No 4. Amount of time spent - ___25 min ___ 5. Reviewed by Physician? (if this service was performed by NPP) Yes / No ATTESTATION BY PHYSICIAN I have seen and examined the patient. I reviewed the documentation, medical decision making, and treatment plan as noted by the mid-level provider above. I agree with the findings and plan of care. Alondra Mccann MD, ELIZABETH NP Nov 07, 2024 07:35
[2024-11-07] MEDS: LACTATED RINGERS 1000ML IV STA (07:50)
[2024-11-07] MEDS: ZOSYN 3.375GM +NS 50ML IV ONE (07:51)
[2024-11-07] MEDS ORDERED: 0.9%NACL 50ML IV SCH (08:00)
--- NOTE | 2024-11-07 10:17 | NUR ---
Report given to LUCY Millard, all questions answered. Pt. transferred via stretcher to Room 314, no acute distress noted. V/S: HR72, Resp19, O2 100% via Room Air, B/P 161/72mmHg.
[2024-11-07] MEDS: LACTATED RINGERS 1000ML 1,000 ML IV SCH (11:01)
--- NOTE | 2024-11-07 11:02 | CONS ---
CONSULT NOTE: Consulting physician:Dr Mccann Consulting service: General surgery Reason for consultation: Acute appendicitis History of present illness: This is a 69-year-old female consulted to surgery after presenting to the hospital with the abdominal pain with associated with nausea and vomiting that began yesterday. Due to concerns patient was brought to the hospital for further evaluation. Initial imaging concerning for appendicoliths in both the orifice in the tip of the appendix with inflammation noted. On physical exam patient with right lower quadrant tenderness and rebound tenderness. WBCs 13.4. Patient is on IV fluids and IV antibiotics and currently NPO. Medical history: Hypertension Surgical history: Hysterectomy Review of systems: General: No Fever, No Chills, No Night Sweats, No Fatigue, No Malaise, No Appetite, No Other HEENT: No Head Aches, No Visual Changes, No Eye Pain, No Ear Pain, No Dysphasia, No Sinus Congestion, No Post Nasal Drip, No Sore Throat, No Other Pulmonary: No Dyspnea, No Cough, No Pleuritic Chest Pain, No Other Cardiovascular: No: Chest Pain, Palpitations, Orthopnea, Paroxysmal No Dyspnea, Edema, Lt Headedness, Other Gastrointestinal: No: Nausea, Vomiting, Diarrhea, Constipation, Melena, Hematochezia, Other Genitourinary: No Dysuria, No Frequency, No Incontinence, No Hematuria, No Retention, No Other Musculoskeletal: No: other, neck pain, shoulder pain, arm pain, back pain, hand pain, leg pain, foot pain Skin: No Urticaria, No Rash, No Other Neurological: No: Weakness, Numbness, Incoordination, Change in speech, Confusion, Seizures, Other Physical exam: General: Awake alert and oriented Heart: Regular rate and rhythm} Lungs: [Clear to auscultation no distress Abdomen: Right lower quadrant tenderness with rebound tenderness A 6 mm appendicolith at the orifice of the appendix. Mildly dilated appendix measuring up to 11 mm with mild wall thickening and periappendiceal fat stranding consistent with acute appendicitis. Tiny appendicolith in the tip of the appendix. Scattered colonic diverticulosis without evidence of diverticulitis. No inflammatory bowel wall thickening. Mild hiatus hernia. Mild fatty infiltration of the liver. No obvious focal lesion. No evidence of renal or ureteric calculus or hydronephrosis. Compared to the prior study, there is an interval development of changes in acute appendicitis. The remainder of the findings remain unchanged. Assessment: This is a 69-year-old female with the acute appendicitis with a appendicolith Plan: At this point in time patient will be scheduled for laparoscopic appendectomy to be performed by Dr. Willie Pretty Patient to remain NPO Patient to continue with the IV fluids IV antibiotics Surgical team to follow patient closely Nursing report any further acute events ZOEY ALEX Jr. Nov 07, 2024 11:02
[2024-11-07] MEDS: NICOTINE 21 MG/ 24 HR PATCH TD ONE (12:42)
[2024-11-07] MEDS ORDERED: LIDOCAINE HCL 1% 20 ML VIAL ONE (15:52)
[2024-11-07] MEDS: ZOSYN 3.375GM +NS 50ML IVPB SCH (16:04)
[2024-11-07] MEDS ORDERED: LIDOCAINE PF 100MG/5ML (2%) SYRINGE 5ML ONE (18:53)
[2024-11-07] MEDS ORDERED: MIDAZOLAM HCL 1 MG/ML 2ML VIAL ONE ×2 (18:53→18:58)
--- NOTE | 2024-11-07 19:48 | OP ---
Operative Note: DATE OF PROCEDURE: 11/07/24 SURGEON: VINOD BASSETT DO ACOUSTIC INTELLIGENCE SPECIALIST: None ANESTHESIA: General ANESTHESIOLOGIST/BOTTOM TURNER: PRESTON Crane PREOPERATIVE DIAGNOSIS: Acute appendicitis POSTOPERATIVE DIAGNOSIS: Acute uncomplicated appendicitis SYNOPSIS: None PROCEDURE: Laparoscopic appendectomy ESTIMATED BLOOD LOSS: 5 cc INDICATIONS: This is a 69-year-old female with acute onset right lower quadrant abdominal pain. She had a leukocytosis. CT scan of the abdomen and pelvis showed enlarged and indurated appearing appendix consistent with acute appendicitis. On physical exam patient was focally tender to palpation in the right lower quadrant with rebound. I recommended laparoscopic appendectomy. I discussed the procedure in detail with the patient, her , and her daughter who were at bedside. All questions were answered. All expressed understanding and agreement with the plan. DESCRIPTION OF PROCEDURE: Patient was placed on the operating table in the supine position with the left arm tucked. After being sedated and intubated by anesthesia the abdomen was prepped and draped in the usual sterile fashion. Patient is on antibiotics from the floor next dose not due for 3 hours. A transverse supraumbilical skin incision was made and dissection was carried down to the level of fascia. The fascia was grasped with 2 Ashok clamps and elevated. The fascia was incised and the peritoneum was entered bluntly. A 12 mm balloon port was inserted into the peritoneal cavity and the abdomen was insufflated. The patient tolerated insufflation well. A laparoscopic camera was inserted into the abdomen and all 4 quadrants were inspected. No gross abnormalities apparent and no evidence of inadvertent injury apparent. Two 5 mm ports were then placed in the suprapubic region and left lower quadrant under direct visualization. The patient was placed in Trendelenburg position with right side up. The appendix was identified and found to be indurated and dilated with minimal adhesions to surrounding fat. The mesoappendix was divided using the Vuoyant vessel sealing device. The base of the appendix was transected using a blue load laparoscopic stapling device. The staple line was inspected and a single bleeding vessel near the medial aspect of the staple line. Two clips were applied using a 5 mm clip executive officer. The field was then hemostatic. The appendix was placed into a laparoscopic bag. A moderate amount of turbid fluid was suctioned from the pelvis. The 5 mm ports were removed under direct visualization and no ongoing bleeding evident. The appendix was removed with the 12 mm port and handed off for routine pathology. The fascia of the 12 mm port site was approximated using 0 Vicryl in a single [id number] suture. The skin was approximated using skin wes. Wounds were dressed with gauze and tape. All instrument, needle, and sponge counts were correct at the end of the procedure. The patient tolerated the procedure well. The patient was aroused from sedation extubated and taken to the postanesthesia care unit in good condition. VINOD BASSETT DO Nov 07, 2024 19:48
--- NOTE | 2024-11-07 20:50 | NUR ---
POST-OP Patient arrived to floor at 0 s/p laparoscopic cholecystectomy. Family at bedside. Vital signs - BP: 143/71, HR: 75, RR: 19, O2 Sat: 97%. Patient comfortable with no complaints of pain at this time. Patient with 4 incisions to abdomen covered by 4x4 gauze/tape. All clean, dry and intact.
[2024-11-07] MEDS: SUGAMMADEX SODIUM 200 MG/2 ML VIAL IV ONE (20:51)
[2024-11-08] VITALS (8 sets, daily range): BP systolic 110–127; BP diastolic 58–70; PULSE 73–85; RESP 18–19; TEMP 97.5–98; O2SAT 95–97
[2024-11-08 06:04] LABS: IMMATURE GRANULOCYTE ABSOLUTE 0.05 K/uL (0-1); NUCLEATED RED BLOOD CELLS 0.0 % (0.0-0.19); PLATELET COUNT (AUTO) 127 K/uL (130-400); RED BLOOD CELL COUNT(AUTO) 4.55 MIL/uL (4.00-5.50); RED CELL DISTRIBUTION WIDTH 13.3 % (11.0-15.5); WHITE BLOOD COUNT (AUTO) 9.2 K/uL (4.8-10.8)
[2024-11-08 06:35] LABS: ASPARTATE AMINOTRANSFERASE 18.0 U/L (10-37); CREATININE 0.9 mg/dL (0.5-1.0); GLOMERULAR FILTR. RATE CALC 69.0 mL/min (>90); GLUCOSE,RANDOM 134.0 mg/dL (70-105); LDL DIRECT 104.0 mg/dL (0-99); SODIUM SERUM 136.0 mmol/L (136-145); TOTAL PROTEIN, SERUM 6.0 g/dL (6.0-8.3); UREA NITROGEN, BLOOD 15.0 mg/dL (7-18)
[2024-11-08] MEDS: NICOTINE 21 MG/ 24 HR PATCH TD SCH (09:15)
--- NOTE | 2024-11-08 09:42 | NUR ---
DCP:HOME Pt currently lives with her John Raphael [phone]. Pt does not have any DME, home health, or provider services. Pt states that she is able to complete ADLs independently. PCP is Micki Silvestre and uses [facility] for any RX needs. At NM pt will want to go home and family can assist with transportation. Addendum: 11/08/24 at 0945 by ISAK SALDANA SS Amended: Links added.
[2024-11-08] MEDS ORDERED: AMOX1TAB16 PO (11:06)
--- NOTE | 2024-11-08 11:10 | DS ---
Discharge Summary Hospital Course Summary: DATE OF ADMISSION:[11/07/2024] DATE OF DISCHARGE:[11/08/2024] DISPOSITION:[Home] CONDITION:[Medically stable] CONSULTANTS:[Surgeon] FOLLOW UP APPOINTMENTS:[PCP 2 to 3 days. Surgeon within one week] PROCEDURES:[Lap appendectomy Dr. Pretty 11/07/2024] IMAGING: report attached to summary MICROBIOLOGY: report attached to summary ACTIVITY:[One-person assist with a walker] HOME MEDICATIONS: see [facility] NEW MEDICATIONS:[Augmentin 875 mg p.o. b.i.d. x5 days] EMERGENCY INSTRUCTIONS: The patient was instructed to present to the nearest Emergency departmentr or call 911 once their symptoms will return or worsen Bartender Manager(s): Patient is 69 years old female who came to emergency department with a complaint of right lower quadrant pain 10/[address] abdomen/pelvis was performed showed acute appendicitis. Patient was evaluated by the surgeon Dr. Pretty and same day in ED perform lap appendectomy 11/07/2024. Today patient was already cleared by surgeon to be discharged home. Patient was tolerating food. Patient denies any nausea, vomiting or any other discomfort other than pain after appendectomy, she is well tolerated. WBC 9.2. Patient will be discharged home on Augmentin 875 mg p.o. b.i.d. x5 days. Follow-up with PCP in 2 to 3 days. Follow up with surgeon within one week. Procedure(s): PHYSICAL EXAM GENERAL APPEARANCE: The patient is awake, alert, and oriented, in no acute cardiopulmonary distress. NEUROLOGICAL: Cranial nerves II-XII grossly intact. Motor is 5/5 in bilateral upper and lower extremities proximal to distal. No sensory deficits. HEENT: Face is symmetric. Pupils are equal and reactive. Extraocular movements are intact. NECK: Supple. No JVD. No thyromegaly. No submental, submandibular, pre- /postauricular, occipital or supraclavicular lymphadenopathy. CHEST: Normal chest expansion. No Telemetry. LUNGS: Absence of any rales, rhonchi or any wheezing. CARDIOVASCULAR: Regular. S1 and S2 normal. No appreciable rubs, murmurs or gallops. ABDOMEN: Soft, nontender, and nondistended. There is no rebound, voluntary guarding, or rigidity. : Deferred. No Hutson. EXTREMITIES: Non-edematous and not cyanotic. No clubbing. Good capillary refill. SKIN: No skin breakdown. Assessment/Plan: ASSESSMENT: acute appendicitis POA S/p lap appendectomy with Dr. Pretty 11/07/2024 Active smoker POA Suspecting TEJAS obesity BMI: 28.9 Home Medications: Reported Medications Cyanocobalamin (Vitamin B-12) (Vitamin B12) 2,500 Mcg Tab.chew, 2000 UNITS PO DAILY, TAB.CHEW 05/12/22 Cholecalciferol (Vitamin D3) 50,000 Units Cap, 2000 UNITS PO BID, CAP 05/12/22 Paroxetine HCl (Paroxetine HCl) 10 Mg Tablet, 10 MG PO DAILY, TAB 05/12/22 Simethicone (Simethicone) 80 Mg Tab.chew, 80 MG PO BID, TAB.CHEW 05/12/22 Fluticasone Propionate (Flonase Nasal [place]) 50 Mcg/[place], 50 MCG NASAL HS, SPRAY 05/12/22 Loratadine (Loratadine) 10 Mg Tablet, 10 MG PO HS, TAB 05/12/22 Famotidine (Famotidine) 20 Mg Tablet, 20 MG PO HS, TAB 05/12/22 Simvastatin (Simvastatin) 10 Mg Tablet, 10 MG PO HS, TAB 05/12/22 Pantoprazole Sodium (Pantoprazole Sodium) 40 Mg Tablet.dr, 40 MG PO DAILY, TAB 05/12/22 Lisinopril (Lisinopril) 5 Mg Tablet, 5 MG PO DAILY, TAB 05/12/22 Discontinued Scripts Cyclobenzaprine HCl (Flexeril) 10 Mg Tab, 10 MG PO TIDP PRN for MUSCLE SPASMS, #30 TAB 2 Refills Prov:DEANA MENDOSA Sr., MD 05/29/23 Meloxicam (Meloxicam) 7.5 Mg Tablet, 7.5 MG PO DAILY, #30 TAB 2 Refills Prov:DEANA MENDOSA Sr., MD 05/29/23 Famotidine (Pepcid) 20 Mg Tablet, 20 MG PO DAILY, #15 TAB 0 Refills Prov:LAURA MCMILLAN MD 07/31/22 Ondansetron (Ondansetron Odt) 4 Mg Tab.rapdis, 4 MG PO TID PRN for NAUSEA, #30 TAB 0 Refills Prov:LAURA MCMILLAN MD 07/31/22 Phenazopyridine HCl (Pyridium) 200 Mg Tab, 200 MG PO TIDPC for 3 Days, #9 TAB TAKE WITH FOOD TO PREVENT STOMACH UPSET. Prov:RAJ HWANG MD 05/17/22 Cephalexin Monohydrate (Keflex) 500 Mg Cap, 500 MG PO QID for 7 Days, #28 CAP Prov:RAJ HWANG MD 05/17/22 Time spent arranging discharge: 31-60 minutes ATTESTATION BY PHYSICIAN I have seen and examined the patient. I reviewed the documentation, medical decision making, and treatment plan as noted by the mid-level provider above. I agree with the findings and plan of care. KANE FRANCIS MD, KATARZYNA B TOY MECHANIC Nov 08, 2024 11:10
--- NOTE | 2024-11-08 17:43 | NUR ---
D/C INSTRUCTIONS GIVEN AND ACKNOWLEDGED. IV REMOVED. SPOUSE UPSET BECAUSE " I TOOK TOO LONG FOR THE D/C"
[2024-11-08] MEDS ORDERED: LORATAdine 10 mg 10 MG TABLET PO SCH (21:00)
[2024-11-08] MEDS ORDERED: CHOLECALCIFEROL 2000 UNIT PO SCH (21:00)
[2024-11-08] MEDS ORDERED: FAMOTIDINE 20MG TAB PO SCH (21:00)
[2024-11-08] MEDS ORDERED: SIMETHICONE 80 MG TAB.CHEW PO SCH (21:00)
[2024-11-09] MEDS ORDERED: CYANOCOBALAMIN PO SCH (09:00)
[2024-11-09] MEDS ORDERED: LISINOPRIL 5 MG TABLET PO SCH (09:00)
[2024-11-09] MEDS ORDERED: PAROXETINE HCL 10 MG PO SCH (09:00)
== END 2024-11-08 17:55 | disposition home or self-care (01) ==
LOC: EDH 04:44 → INTOOBSV 07:30 → EDHIP 07:30 → 3CH 10:24
PROVIDERS: ADMIT Hospitalist; ATTEND Hospitalist
DX: K35.80 Unspecified acute appendicitis (principal); I10 Essential (primary) hypertension; F17.210 Nicotine dependence, cigarettes, uncomplicated; E66.9 Obesity, unspecified; E78.5 Hyperlipidemia, unspecified; Z68.28 Body mass index [BMI] 28.0-28.9, adult; Z90.710 Acquired absence of both cervix and uterus; Z79.899 Other long term (current) drug therapy; Z98.890 Other specified postprocedural states
CPT/HCPCS: 44970; 96376 ×3; 96365; 96366 ×2; 96375 ×2; 99285; 82550; 84484; 80053 ×2; 83690; 85025 ×2; 81003; 36415 ×2; 88304; 74176; 93005; 84443; 83735; 80061; J1100; G0378 ×5; J7030; A4344; J3010; J2270 ×5; J3490; J2003; J2250 ×2; J2704; J2405 ×3; J2543 ×4; J2470; J2795; J2371; A6206; C1769 ×3; A4649; A4930; 96374; J0665

== ENCOUNTER 2024-11-27 10:02 | Emergency (ER) | payer OTHER ==
[~2024-11-27] VITALS: Ht 160 cm; Wt 72.6 kg
[~2024-11-27 10:02] MED LIST changes: +AMOX1TAB16 PO; -CEPH500B PO; -CYCL10TA16 PO; -FAMO-136 PO; -MELO-106 PO; -ONDA-243 PO; -PHEN-847 PO
--- NOTE | 2024-11-27 10:09 | ERN ---
ED Note History of Present Illness Stated Complaint: PALPITATIONS, CP X 3 DAYS Chief Complaint: Chest Pain Time Seen by MD: 10:05 Dictation: PATIENT IS A 69-YEAR-OLD FEMALE COMING IN WITH CHEST PAIN/PALPITATIONS AT A SUBSTERNAL DOES NOT RADIATE ONSET THREE DAYS PRIOR TO ARRIVAL. SHE DESCRIBES HIS INTERMITTENT AND ACHY. NO SHORTNESS A BREATH NO NAUSEA VOMITING NO JAW PAIN NO ARM PAIN NO BACK PAIN. SHE DID HAVE A HEART CATHETERIZATION BY DR. DREW HECTOR LAST YEAR AND WAS TOLD EVERYTHING WAS OPEN. Allergies: Coded Allergies: No Known Allergies (Unverified Allergy, Unknown, 10/31/18) Home Meds Active Scripts Amoxicillin/Potassium Clav (Amox Tr-K Clv 875-125 mg Tab) 875 Mg-125 Mg Tablet, 1 EACH PO BID, #10 TAB Prov:JOSE ARMANDO SKY ELECTRIC SIGN ASSEMBLER 11/08/24 Reported Medications Cyanocobalamin (Vitamin B-12) (Vitamin B12) 2,500 Mcg Tab.chew, 2000 UNITS PO DAILY, TAB.CHEW 05/12/22 Cholecalciferol (Vitamin D3) 50,000 Units Cap, 2000 UNITS PO BID, CAP 05/12/22 Paroxetine HCl (Paroxetine HCl) 10 Mg Tablet, 10 MG PO DAILY, TAB 05/12/22 Simethicone (Simethicone) 80 Mg Tab.chew, 80 MG PO BID, TAB.CHEW 05/12/22 Fluticasone Propionate (Flonase Nasal [place]) 50 Mcg/[place], 50 MCG NASAL HS, SPRAY 05/12/22 Loratadine (Loratadine) 10 Mg Tablet, 10 MG PO HS, TAB 05/12/22 Famotidine (Famotidine) 20 Mg Tablet, 20 MG PO HS, TAB 05/12/22 Simvastatin (Simvastatin) 10 Mg Tablet, 10 MG PO HS, TAB 05/12/22 Pantoprazole Sodium (Pantoprazole Sodium) 40 Mg Tablet.dr, 40 MG PO DAILY, TAB 05/12/22 Lisinopril (Lisinopril) 5 Mg Tablet, 5 MG PO DAILY, TAB 05/12/22 Past Medical History Past Medical History: Hypertension, Other Additional Past Medical Hx: HX OF GASTRITIS Surgical History: None Surgical History Other: ANGIOGRAM Social History: Smokers RN Note Reviewed/Agreed w/PFSH: Yes Review of System Dictation CONSTITUTIONAL: NEGATIVE EXCEPT FOR HPI HEAD/FACE: NEGATIVE EXCEPT FOR HPI EENT: NEGATIVE EXCEPT FOR HPI RESPIRATORY: NEGATIVE EXCEPT FOR HPI PALPITATIONS GASTROINTESTINAL/ABDOMINAL: NEGATIVE EXCEPT FOR HPI GENITOURINARY: NEGATIVE EXCEPT FOR HPI MUSCULOSKELETAL: NEGATIVE EXCEPT FOR HPI INTEGUMENTARY: NEGATIVE EXCEPT FOR HPI NEUROLOGICAL/PSYCH: NEGATIVE EXCEPT FOR HPI HEMATOLOGIC/LYMPHATIC: NEGATIVE EXCEPT FOR HPI ALL SYSTEMS NEGATIVE, EXCEPT NOTED ABOVE. 13 POINT REVIEW OF SYSTEMS ASSESSED AND ALL NEGATIVE EXCEPT FOR ABOVE. Initial Vital Sign VS Vital Signs Date Time Temp Pulse Resp B/P (MAP) Pulse Ox O2 Delivery O2 Flow Rate FiO2 11/27/24 10:05 97.9 76 16 166/67 98 Room Air 0 11/27/24 14:05 21 Physical Exam Dictation VITAL SIGNS REVIEWED GENERAL APPEARANCE: ALERT, ORIENTED X 3, NO ACUTE DISTRESS, WELL DEVELOPED, NOURISHED. HEAD AND FACE: NON-TRAUMATIC. EYES: PERRL, PINK CONJUNCTIVAS, EYELID NO TRAUMA, ANTERIOR CHAMBER WITH ARCUS SENILIS. EARS: PINNAS INTACT AND NO SIGNS OF TRAUMA OR ERYTHEMA EAR CANALS CLEAR AND NO DISCHARGE TM NO ERYTHEMA NOSE: NO DISCHARGE, NO BLEEDING. OROPHARYNX: MOUTH NORMAL, TONGUE PINK, PHARYNX CLEAR,NO ERYTHEMA, TONSILS NO EXUDATES, NO ABSCESSES NOTED, MUCOUS MEMBRANE MOIST NECK: SUPPLE, NON-TENDER, NO THYROMEGALY, NO MASSES, NO JVD, NO BRUITS BREAST:DEFERRED CHEST:NO TENDERNESS, NO CREPITUS, NO PARADOXICAL MOVEMENT, NO RETRACTIONS LUNGS:CLEAR, WELL-VENTILATED, SYMMETRIC, NO RALES, NO WHEEZING, NO RHONCHI, NO STRIDOR, GOOD BREATH SOUNDS BILATERALLY HEART: REGULAR RATE, REGULAR RHYTHM, NO MURMUR, NO GALLOPS VASCULAR: NO PERIPHERAL EDEMA, ABDOMEN: SOFT, POSITIVE BOWEL SOUNDS, NONDISTENDED, NO GUARDING, NONTENDER, NO REBOUND, NO MASSES NO HEPATOMEGALY, NO SPLENOMEGALY, NO GARCIA'S SIGN, NO HERNIAS. RECTAL: DEFERRED GENITAL: DEFERRED NEUROLOGICAL: NORMAL SPEECH, MOTOR FUNCTION INTACT, SENSORY FUNCTION INTACT MUSCULOSKELETAL: NECK NONTENDER, FULL RANGE OF MOTION, BACK NONTENDER, FULL RANGE OF MOTION, EXTREMITIES: NONTENDER, FULL RANGE OF MOTION SKIN: COLOR PINK, DRY, NO TURGOR, NO RASH, NO LACERATIONS, NO ABRASIONS, NO CONTUSIONS. LYMPHATIC: DEFERRED Results (Laboratory/Radiology) Laboratory/Radiology Laboratory Tests Test 11/27/24 10:12 White Blood Count 4.6 K/uL (4.8-10.8) L Red Blood Count 4.63 MIL/uL (4.00-5.50) Hemoglobin 13.5 g/dL (12.0-16.0) Hematocrit 41.1 % (36-48) Mean Corpuscular Volume 88.8 fL (79-99) Mean Corpuscular Hemoglobin 29.2 pg (27.0-33.0) Mean Corpuscular Hemoglobin Concent 32.8 g/dL (32.0-36.0) Red Cell Distribution Width 13.5 % (11.0-15.5) Platelet Count 164 K/uL (130-400) Mean Platelet Volume 10.8 fL (7.5-10.5) H Immature Granulocyte % (Auto) 0.2 % (0-1) Neutrophils (%) (Auto) 45.9 % (40.0-77.0) Lymphocytes (%) (Auto) 47.0 % (21.0-51.0) Monocytes (%) (Auto) 4.5 % (3.0-13.0) Eosinophils (%) (Auto) 0.9 % (0.0-8.0) Basophils (%) (Auto) 1.5 % (0.0-5.0) Neutrophils # (Auto) 2.1 K/uL (1.8-7.7) Lymphocytes # (Auto) 2.2 K/uL (1.0-4.8) Monocytes # (Auto) 0.2 K/uL (0.1-1.0) Eosinophils # (Auto) 0.04 K/uL (0.00-0.70) Basophils # (Auto) 0.07 K/uL (0.00-0.20) Absolute Immature Granulocyte (auto 0.01 K/uL (0-1) Nucleated Red Blood Cells 0.0 % (0.0-0.19) Sodium Level 142 mmol/L (136-145) Potassium Level 3.8 mmol/L (3.5-5.1) Chloride Level 105 mmol/L (101-111) Carbon Dioxide Level 31 mmol/L (21-32) Blood Urea Nitrogen 13 mg/dL (7-18) Creatinine 1.0 mg/dL (0.5-1.0) Glomerular Filtration Rate Calc 61 mL/min (>90) Random Glucose 162 mg/dL (70-105) H Total Calcium 9.6 mg/dL (8.5-10.1) Magnesium Level 2.10 mg/dL (1.80-2.40) Troponin I High Sensitivity 6 ng/L (4-50) Labs Reviewed?: Yes EKG Comment: EKG IS SINUS RHYTHM/HEART RATE 69/AXIS NORMAL T-WAVE FLATTENING V1 ED Course ED Course Orders Procedure Category Date Status Time Cbc With Differential LAB 11/27/24 Complete 10:07 Chest 1vw RAD 11/27/24 Resulted 10:07 12 Lead Ekg Tracing- EKG 11/27/24 Resulted Technical 10:07 Magnesium LAB 11/27/24 Complete 10:07 Troponin I High LAB 11/27/24 Complete Sensitivity 10:07 Aspirin 325mg Tab PHA 11/27/24 Complete (Aspirin 325mg Tab) 10:30 Basic Metabolic Panel LAB 11/27/24 Complete 10:07 Current Medications Medications (Trade) Dose Ordered Sig/Amish Route PRN Reason Start Time Stop Time Status Last Admin Dose Admin Aspirin (Aspirin 325mg Tab) 325 mg ONCE ONCE PO 11/27/24 10:30 11/27/24 10:31 DC 11/27/24 13:57 Vital Signs Date Time Temp Pulse Resp B/P (MAP) Pulse Ox O2 Delivery O2 Flow Rate FiO2 11/27/24 14:05 97.5 62 17 135/60 98 Room Air* 0 21 11/27/24 10:05 97.9 76 16 166/67 98 Room Air 0 1335/SPOKE WITH DR. DARNELL WELCH OFFICE AT [address] [place] [address] WITH THE ROOM SERVICE ASSOCIATE AND SHE CONNECT ME TO THE NURSE PRAFUL AND SHE SAID SHE WILL HAVE PATIENT CALLED IN A FEW MINUTES TO GIVE HER A NEW APPOINTMENT SOONER. Medical Decision Making MDM MDM: DIFFERENTIAL DIAGNOSIS: ACS/AMI/HYPOMAGNESEMIA/ELECTROLYTE IMBALANCE/DEHYDRATION/PNEUMONIA/BRONCHITIS/ANXIETY RATIONALE: TESTS CONSIDERED AND ORDERED SECONDARY TO SHARED DECISION MAKING INCLUDE: EKGS/LABS LEFT RADIOLOGY PREVIOUS OUTSIDE RECORDS REVIEWED: OLD ER VISITS. RISK OF COMPLICATION AND/OR MORBIDITY OR MORTALITY OF PATIENT MANAGEMENT: NONE MEDICATIONS-PER MEDICATION RECONCILIATION NEED FOR HOSPITALIZATION: PATIENT DOES NOT MEET CRITERIA FOR HOSPITALIZATION. NEED FOR EMERGENCY MAJOR/MINOR SURGERY: NO THERE ARE NO SOCIAL CONCERNS WITH THIS PATIENT. PRESCRIPTION DRUG MANAGEMENT NINE PRESCRIPTIONS WILL INCLUDE SYMPTOMATIC CARE PATIENT'S PRIOR EXTERNAL MEDICAL RECORDS FROM OTHER ER VISITS WERE REVIEWED BY ME INDICATED. PRIOR TESTING AND RESULTS FROM PREVIOUS VISITS WERE REVIEWED. PRIOR TESTS WERE TAKEN INTO ACCOUNT WITH MEDICAL DECISION MAKING AND RESOURCE UTILIZATION, INDEPENDENT HISTORIAN/HISTORIANS WERE USED TO OBTAIN COMPLETE MEDICAL HISTORY. I INDEPENDENTLY INTERPRETED THE TEST THAT WERE PERFORMED, RESULTS WERE REVIEWED BY ME AND CONSIDERED FINDINGS ON RADIOLOGY IF ORDERED. MEDICAL MANAGEMENT AND EXAMINATION INTERPRETATION DISCUSSIONS WERE HAD BY ME WITH OTHER QUALIFIED HEALTHCARE PROFESSIONALS INDICATED FOR THE PATIENT'S CARE. DX & DISP Disposition: Discharge Departure Impression: Primary Impression: Palpitations Additional Impression: Diabetes mellitus with hyperglycemia Condition: Stable Additional Instructions: FOLLOW-UP WITH PRIMARY CARE PROVIDER IN 1 TO 2 DAYS. TAKE MEDICATIONS DIRECTED HERE IN THE EMERGENCY ROOM. OKAY TO CONTINUE HOME MEDICATIONS UNLESS OTHERWISE DISCUSSED DURING YOUR VISIT IN THE EMERGENCY ROOM TODAY. RETURN TO YOUR NEAREST EMERGENCY ROOM IF SYMPTOMS WORSEN OR IF THERE IS NO IMPROVEMENT. CALL 911 IF YOU NEED IMMEDIATE ASSISTANCE. TAKE TYLENOL OR MOTRIN HYBZ-DOS-NHATMPI NEEDED AND IF NO CONTRAINDICATIONS ARE PRESENT. INCREASE ORAL HYDRATION. A WOUND CULTURE OR URINE CULTURE WAS ORDERED HERE IN THE EMERGENCY ROOM DEPARTMENT PLEASE FOLLOW-UP WITH PRIMARY CARE PROVIDER AND ADVISE THEM TO GET REPEAT PORTS FROM OUR FACILITY. IF YOU HAD ANY RANDI WRAP/SPLINTS THAT WERE APPLIED HERE, PLEASE DO NOT REMOVE THEM UNTIL YOU SEE YOUR PRIMARY CARE OR SPECIALTY. CONTINUE ALL YOUR MEDICATIONS AND TREATMENTS AT HOME. EXPECT A CALL TODAY FROM CARDIOLOGY MANAGER'S OFFICE FOR A AN APPOINTMENT SOON. Referrals: MATILDA MCGARRY (PCP) DARNELL HECTOR MD I have reviewed the case, and I agree with, Diagnosis and Plan ULISSES DUMONT NP Nov 27, 2024 10:09 DINESH FIGUEREDO DO Nov 27, 2024 14:56
--- NOTE | 2024-11-27 10:19 | EKG ---
[facility] Test Date: 2024-11-27 Test Time: 10:11:19 Pat Name: TRESA ALVARADO Department: [facility] Room: Gender: F Resin Filterer: [id number] : 1955 Requested By: ULISSES DUMONT Order Number: [id number] Reading MD: Rafaela Cabrera Measurements Intervals [place] Rate: 69 P: 51 ND: 141 QRS: 18 QRSD: 81 T: 68 QT: 387 QTc: 414 Interpretive Statements Sinus rhythm Nonspecific T abnormalities, lateral leads Compared to ECG 11/07/2024 05:08:44 T-wave abnormality now present Electronically Signed On 11-27-2024 12:29:39 CDT by Rafaela Cabrera Please click the below link to view image of tracing.
[2024-11-27 10:23] LABS: IMMATURE GRANULOCYTE ABSOLUTE 0.01 K/uL (0-1); NUCLEATED RED BLOOD CELLS 0.0 % (0.0-0.19); PLATELET COUNT (AUTO) 164 K/uL (130-400); RED BLOOD CELL COUNT(AUTO) 4.63 MIL/uL (4.00-5.50); RED CELL DISTRIBUTION WIDTH 13.5 % (11.0-15.5); WHITE BLOOD COUNT (AUTO) 4.6 K/uL (4.8-10.8)
[2024-11-27 10:30] LABS: CREATININE 1.0 mg/dL (0.5-1.0); GLOMERULAR FILTR. RATE CALC 61.0 mL/min (>90); GLUCOSE,RANDOM 162.0 mg/dL (70-105); SODIUM SERUM 142.0 mmol/L (136-145); UREA NITROGEN, BLOOD 13.0 mg/dL (7-18)
--- NOTE | 2024-11-27 11:33 | HMCIMG ---
EXAM: CR Chest, 1 View. CLINICAL HISTORY: CHEST PAIN COMPARISON: 07/31/22 13:32 EDT CR - CHEST 1VW FINDINGS: LUNGS: The lungs show no infiltrate or other acute finding. PLEURAL SPACES: No evidence of pleural effusion or pneumothorax. MEDIASTINUM: The cardiomediastinal silhouette is within normal limits. BONES: No aggressive appearing osseous lesion seen. IMPRESSION: No acute cardiopulmonary pathology is evident. /[place]
[2024-11-27] MEDS: ASPIRIN 325MG TAB PO ONE (13:57)
[2024-11-27 14:05] VITALS: BP 135/60; PULSE 62; RESP 17; TEMP 97.6; O2SAT 98
== END 2024-11-27 14:08 | disposition home or self-care (01) ==
LOC: EDH 10:02
DX: R00.2 Palpitations (principal); E11.65 Type 2 diabetes mellitus with hyperglycemia; F17.200 Nicotine dependence, unspecified, uncomplicated; I10 Essential (primary) hypertension; Z79.899 Other long term (current) drug therapy
CPT/HCPCS: 36415; 71045; 80048; 83735; 84484; 85025; 93005; 99285

== ENCOUNTER 2024-12-27 09:23 | Emergency (ER) | payer OTHER ==
[~2024-12-27] VITALS: Ht 160 cm; Wt 72.6 kg
[2024-12-27 10:02] LABS: IMMATURE GRANULOCYTE ABSOLUTE 0.02 K/uL (0-1); NUCLEATED RED BLOOD CELLS 0.0 % (0.0-0.19); PLATELET COUNT (AUTO) 161 K/uL (130-400); RED BLOOD CELL COUNT(AUTO) 4.76 MIL/uL (4.00-5.50); RED CELL DISTRIBUTION WIDTH 13.5 % (11.0-15.5); WHITE BLOOD COUNT (AUTO) 4.9 K/uL (4.8-10.8)
[2024-12-27 10:27] LABS: ASPARTATE AMINOTRANSFERASE 24.0 U/L (10-37); CREATININE 1.0 mg/dL (0.5-1.0); GLOMERULAR FILTR. RATE CALC 61.0 mL/min (>90); GLUCOSE,RANDOM 174.0 mg/dL (70-105); SODIUM SERUM 142.0 mmol/L (136-145); TOTAL PROTEIN, SERUM 7.0 g/dL (6.0-8.3); UREA NITROGEN, BLOOD 14.0 mg/dL (7-18)
--- NOTE | 2024-12-27 10:39 | HMCIMG ---
EXAM: CR Chest, 1 View. CLINICAL HISTORY: cp COMPARISON: 11/27 10:57 EDT CR - CHEST 1VW FINDINGS: LUNGS: There is no mass, infiltrate, or acute pulmonary abnormality. PLEURAL SPACES: No evidence of pleural effusion or pneumothorax. MEDIASTINUM: Cardiac size and mediastinal contours within normal limits. BONES: No acute osseous abnormality. IMPRESSION: No acute cardiopulmonary pathology is evident. /[place]
--- NOTE | 2024-12-27 11:27 | ERN ---
ED Note History of Present Illness Stated Complaint: CP Chief Complaint: Chest Pain Time Seen by MD: 09:35 Dictation: 69-year-old female presenting to the emergency department with sharp intermittent chest pain which happened last night and again this morning patient reported symptoms lasted for a few sec at a time worse with touch and movement. Patient had negative left heart catheterization one year ago with Dr. 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 Reported Medications Cyanocobalamin (Vitamin B-12) (Vitamin B12) 2,500 Mcg Tab.chew, 2000 UNITS PO DAILY, TAB.CHEW 05/12/22 Cholecalciferol (Vitamin D3) 50,000 Units Cap, 2000 UNITS PO BID, CAP 05/12/22 Paroxetine HCl (Paroxetine HCl) 10 Mg Tablet, 10 MG PO DAILY, TAB 05/12/22 Simethicone (Simethicone) 80 Mg Tab.chew, 80 MG PO BID, TAB.CHEW 05/12/22 Fluticasone Propionate (Flonase Nasal [place]) 50 Mcg/[place], 50 MCG NASAL HS, SPRAY 05/12/22 Loratadine (Loratadine) 10 Mg Tablet, 10 MG PO HS, TAB 05/12/22 Famotidine (Famotidine) 20 Mg Tablet, 20 MG PO HS, TAB 05/12/22 Simvastatin (Simvastatin) 10 Mg Tablet, 10 MG PO HS, TAB 05/12/22 Pantoprazole Sodium (Pantoprazole Sodium) 40 Mg Tablet.dr, 40 MG PO DAILY, TAB 05/12/22 Lisinopril (Lisinopril) 5 Mg Tablet, 5 MG PO DAILY, TAB 05/12/22 Past Medical History Past Medical History: GERD, High Cholesterol, Hypertension Additional Past Medical Hx: GASTROPARIESIS Surgical History: Appendectomy, Hysterectomy Surgical History Other: ANGIOGRAM Social History: Smokers Review of System Dictation Constitutional: Negative for fever,chills, and weight loss Eyes: Negative for injury, pain,redness, and discharge ENT: Negative for injury,pain or swelling Cardiovascular: Per HPI Respiratory: Negative for shortness of breath, cough, and wheezing, Abdomen/GI: Negative for abdominal pain, nausea, vomiting, diarrhea, and constipation Back: Negative for injury and pain : Negative for injury, bleeding and discharge MS/Extremity: Negative for injury and deformity Skin: Negative for rash, and discoloration Neuro: Negative for headache, weakness, numbness, tingling, and seizure Psych: Negative for suicide ideation, homicidal ideation, and hallucinations Initial Vital Sign VS Vital Signs Date Time Temp Pulse Resp B/P (MAP) Pulse Ox O2 Delivery O2 Flow Rate FiO2 12/27/24 09:26 97.9 64 18 141/51 99 Room Air 0 Physical Exam Dictation General: awake, alert, NAD Head/Face: Normocephalic, atraumatic Eyes: PERRL, EOMI, vision at baseline ENT: oral cavity clear, TMs clear, no signs of infection Neck: Trachea midline, supple, no nuchal rigidity Cardiovascular: RRR, normal S1/S2, No MRGs, no JVD Respiratory: CTAB, no respiratory distress, No rales or wheezes Abdomen: Soft, non-tender, non-distended, normal bowel sounds, no guarding or rebound. Skin: Warm, dry, normal turgor, no rash MS/Extremity: Pulses equal, no cyanosis, neurovascular intact, FROM Neuro: COAx4, GCS 15, strength 5/5, CN 2-12 intact, normal cerebellar exam, normal gait, Psych: Normal behavior, mood, and affect normal Results (Laboratory/Radiology) Laboratory/Radiology Laboratory Tests Test 12/27/24 09:48 White Blood Count 4.9 K/uL (4.8-10.8) Red Blood Count 4.76 MIL/uL (4.00-5.50) Hemoglobin 14.1 g/dL (12.0-16.0) Hematocrit 41.5 % (36-48) Mean Corpuscular Volume 87.2 fL (79-99) Mean Corpuscular Hemoglobin 29.6 pg (27.0-33.0) Mean Corpuscular Hemoglobin Concent 34.0 g/dL (32.0-36.0) Red Cell Distribution Width 13.5 % (11.0-15.5) Platelet Count 161 K/uL (130-400) Mean Platelet Volume 10.5 fL (7.5-10.5) Immature Granulocyte % (Auto) 0.4 % (0-1) Neutrophils (%) (Auto) 60.2 % (40.0-77.0) Lymphocytes (%) (Auto) 32.9 % (21.0-51.0) Monocytes (%) (Auto) 4.9 % (3.0-13.0) Eosinophils (%) (Auto) 0.6 % (0.0-8.0) Basophils (%) (Auto) 1.0 % (0.0-5.0) Neutrophils # (Auto) 2.9 K/uL (1.8-7.7) Lymphocytes # (Auto) 1.6 K/uL (1.0-4.8) Monocytes # (Auto) 0.2 K/uL (0.1-1.0) Eosinophils # (Auto) 0.03 K/uL (0.00-0.70) Basophils # (Auto) 0.05 K/uL (0.00-0.20) Absolute Immature Granulocyte (auto 0.02 K/uL (0-1) Nucleated Red Blood Cells 0.0 % (0.0-0.19) Sodium Level 142 mmol/L (136-145) Potassium Level 3.8 mmol/L (3.5-5.1) Chloride Level 107 mmol/L (101-111) Carbon Dioxide Level 28 mmol/L (21-32) Blood Urea Nitrogen 14 mg/dL (7-18) Creatinine 1.0 mg/dL (0.5-1.0) Glomerular Filtration Rate Calc 61 mL/min (>90) Random Glucose 174 mg/dL (70-105) H Total Calcium 8.7 mg/dL (8.5-10.1) Total Bilirubin 0.4 mg/dL (0.2-1.0) Direct Bilirubin 0.1 mg/dL (0.0-0.3) Aspartate Amino Transf (AST/SGOT) 24 U/L (10-37) Alanine Aminotransferase (ALT/SGPT) 39 U/L (12-78) Alkaline Phosphatase 87 U/L (50-136) Troponin I High Sensitivity 6 ng/L (4-50) B-Type Natriuretic Peptide 26 pg/mL (0-100) Total Protein 7.0 g/dL (6.0-8.3) Albumin 3.5 g/dL (3.5-5.0) Labs Reviewed?: Yes EKG Comment: Heart rate 64 normal sinus rhythm normal intervals no STEMI ED Course ED Course Orders Procedure Category Date Status Time B-Type Natriuretic LAB 12/27/24 Complete Peptide 09:36 12 Lead Ekg Tracing- EKG 12/27/24 Logged Technical 09:36 Basic Metabolic Panel LAB 12/27/24 Complete 09:36 Cbc With Differential LAB 12/27/24 Complete 09:36 Hepatic Function Panel LAB 12/27/24 Complete 09:36 Troponin I High LAB 12/27/24 Complete Sensitivity 09:36 Chest 1vw RAD 12/27/24 Resulted 09:36 12 Lead Ekg Tracing- EKG 12/27/24 Logged Technical 09:37 Vital Signs Date Time Temp Pulse Resp B/P (MAP) Pulse Ox O2 Delivery O2 Flow Rate FiO2 12/27/24 09:26 97.9 64 18 141/51 99 Room Air 0 Medical Decision Making MDM MDM: Differential diagnosis: Rationale: Tests considered and ordered secondary to shared decision making include: Previous outside records reviewed: Old ER visits. Risk of complication and/or morbidity or mortality of patient management: None Medications-Per medication reconciliation Need for hospitalization: Patient does not meet criteria for hospitalization. Need for emergency major/minor surgery: No There are no social concerns with this patient. Prescription drug management Prescriptions will include symptomatic care Patient's prior external medical records from other ER visits were reviewed by me as indicated. Prior testing and results from previous visits were reviewed. Prior tests were taken into account with medical decision making and resource utilization, independent historian/historians were used to obtain complete medical history. I independently interpreted the test that were performed, results were reviewed by me and considered findings on radiology if ordered. Medical management and examination interpretation discussions were had by me with other qualified healthcare professionals as indicated for the patient's care. 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
[2024-12-27 11:57] VITALS: BP 150/60; PULSE 65; RESP 14; TEMP 97.9; O2SAT 97
--- NOTE | 2024-12-27 14:01 | EKG ---
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
== END 2024-12-27 11:55 | disposition home or self-care (01) ==
LOC: EDH 09:23
DX: R07.89 Other chest pain (principal); E78.00 Pure hypercholesterolemia, unspecified; I10 Essential (primary) hypertension; K21.9 Gastro-esophageal reflux disease without esophagitis; F17.200 Nicotine dependence, unspecified, uncomplicated; Z79.899 Other long term (current) drug therapy; Z90.49 Acquired absence of other specified parts of digestive tract; Z90.710 Acquired absence of both cervix and uterus
CPT/HCPCS: 36415; 71045; 80048; 80076; 83880; 84484; 85025; 93005; 99285